=== PATIENT | female | born 1945 | race Caucasian/White ===

== ENCOUNTER 2020-12-23 12:58 | Emergency (ER) | payer MEDICARE ==
[2020-12-23] MEDS ORDERED: FLEXERIL5 MG PO ×2 (14:50→14:51)
[2020-12-23] MEDS ORDERED: PREDNISONE 20MG20 MG PO ×2 (14:50→14:51)
== END 2020-12-23 15:30 | disposition home or self-care (01) ==
LOC: FER 12:58
DX: M54.40 Lumbago with sciatica, unspecified side (principal); I10 Essential (primary) hypertension; I48.91 Unspecified atrial fibrillation; E11.9 Type 2 diabetes mellitus without complications
CPT/HCPCS: 72128; J1100